=== PATIENT | female | born 1965 ===

== ENCOUNTER 2022-07-23 17:19 | Outpatient (NON) | payer OTHER, SELFPAY ==
[2022-07-23 17:43] LABS: D Dimer 0.62 ug/mL (<0.48)
== END 2022-07-23 17:20 | disposition home or self-care (01) ==
LOC: ANHLAB 17:28
PROVIDERS: Visit Provider Internal Medicine
DX: M25.569 Pain in unspecified knee (principal); I10 Essential (primary) hypertension; E78.5 Hyperlipidemia, unspecified; Z13.1 Encounter for screening for diabetes mellitus
CPT/HCPCS: 36415; 85380